=== PATIENT | male | born 2000 | race Two or more races ===

== ENCOUNTER 2022-09-17 19:58 | Emergency (ER) | payer SELFPAY ==
[~2022-09-17] VITALS: Ht 170.2 cm; Wt 60.3 kg
[2022-09-17 20:18] VITALS: BP 112/58; TEMP 98
[2022-09-17] MEDS ORDERED: TDAP [DIPH/PERTUSSIS/TET] 0.5 ML VIAL IM ONE ×2 (21:30→21:42)
[2022-09-17 21:57] VITALS: O2SAT 98
== END 2022-09-17 21:58 | disposition home or self-care (01) ==
LOC: ER 21:20
DX: S01.01XA Laceration without foreign body of scalp, initial encounter (principal); W01.0XXA Fall on same level from slipping, tripping and stumbling without subsequent striking against object, initial encounter; Y93.89 Activity, other specified; Y92.89 Other specified places as the place of occurrence of the external cause; Y99.8 Other external cause status
CPT/HCPCS: 90715

== ENCOUNTER 2022-09-23 19:21 | Emergency (ER) | payer MEDICAID ==
[~2022-09-23] VITALS: Ht 170.2 cm; Wt 60.3 kg
[2022-09-23 22:51] VITALS: BP 125/86; TEMP 98; O2SAT 97
== END 2022-09-23 23:40 | disposition home or self-care (01) ==
LOC: ER 19:23
DX: S01.01XD Laceration without foreign body of scalp, subsequent encounter (principal); X58.XXXD Exposure to other specified factors, subsequent encounter